=== PATIENT | male | born 1960 | race Caucasian/White ===

== ENCOUNTER 2025-01-28 16:23 | Emergency (ER) | payer MEDICARE, SELFPAY ==
[2025-01-28 16:30] VITALS: BP 141/89; PULSE 61; TEMP 36.8; O2SAT 95; BMI 31.7
--- NOTE | 2025-01-28 16:58 | ED.GENADUL1 ---
HPI HPI - General Adult General Chief complaint: Allergic Reaction Stated complaint: STUNG Time Seen by Provider: 01/28/25 16:28 Source: patient Mode of arrival: walk-in Limitations: no limitations History of Present Illness HPI narrative: Patient is a 64-year-old male with a past medical history of HTN that presents to the emergency department with complaints of bug sting about 45 minutes prior to arrival on his right bicep and right side of his mid back. He states that he was a passenger in a truck where his arm was hanging out the window and he felt it sting his arm and then his back. His son was driving and dropped him off in the ER to be evaluated. He denies any anaphylactic reaction in the past with being stung by bugs or bees. He states about 30 years ago he was stung in the neck and it did swell up but he did not have any anaphylaxis, lip or tongue swelling. He denies any chest pain or shortness of breath. He did not take any medications prior to arrival. Related Data Home Medications ?Medication ?Instructions ?Recorded ?Confirmed amlodipine 10 mg tablet 10 mg PO DAILY 01/28/25 01/28/25 fenofibrate 160 mg tablet 160 mg PO DAILY 01/28/25 01/28/25 glipizide 5 mg tablet 5 mg PO BID 01/28/25 01/28/25 hydrochlorothiazide 25 mg tablet 25 mg PO DAILY 01/28/25 01/28/25 lisinopril 40 mg tablet 40 mg PO DAILY 01/28/25 01/28/25 metoprolol tartrate 100 mg tablet 100 mg PO BID 01/28/25 01/28/25 Allergies Allergy/AdvReac Type Severity Reaction Status Date / Time bee venom protein (honey bee) Allergy Severe Rash Verified 01/28/25 16:29 Opioid HPI Opioid Management Most Recent Opioid Data: Last Pain Scale 4 01/28/25, 16:30 Review of Systems ROS Status of ROS 10 or more systems reviewed and unremarkable except as noted in history and below PFSH PFSH Social History Little interest or pleasure in doing things: not at all Feeling down, depressed, or hopeless: not at all Exam Narrative Exam Narrative: General: No distress, age-appropriate Skin: Warm, dry, no pallor. Small raised lesion with erythema on the medial aspect of the right bicep about 1x 2cm and then on the right side of his back-thoracic region, no induration. Head: Normocephalic, atraumatic. Neck: Supple, non-tender. Eye: Pupils are equal, round and EOMI. No scleral icterus. Ears, Nose, Mouth, and Throat: No nasal mucosal hypertrophy. Oral mucosa is moist, no posterior oropharynx erythema, uvula is mid-line Cardiovascular: Regular Rate and Rhythm without murmur, gallop or rub. Respiratory: No accessory muscle use or respiratory distress. Lungs are clear to auscultation, no wheezing, rales or rhonchi Chest Wall: no tenderness Back: No midline thoracic or lumbar vertebral tenderness. Musculoskeletal: Full ROM of all extremities, no calf or popliteal tenderness GI: Abdomen is soft, non-distended, non tender to palpation. No masses appreciated. No rebound, guarding, or rigidity noted. Neurological: A&O x4. No cranial nerve dysfunction observed. No truncal ataxia. Moves all extremities. Sensation intact. Psychiatric: Cooperative and interactive. Normal mood and affect. Constitutional Vital Signs, click to edit/add: Last Vital Signs Temp 98.3 F 01/28/25 16:30 Pulse 61 01/28/25 16:30 Resp 20 01/28/25 16:30 BP 141/89 01/28/25 16:30 Pulse Ox 95 01/28/25 16:30 O2 Del Method Room Air 01/28/25 16:30 Course Vital Signs Vital signs: Vital Signs Temperature 98.3 F 01/28/25 16:30 Pulse Rate 61 01/28/25 16:30 Respiratory Rate 20 01/28/25 16:30 Blood Pressure 141/89 01/28/25 16:30 Pulse Oximetry 01/28/25 16:30 Oxygen Delivery Method Room Air 01/28/25 16:30 Temperature 98.3 F 01/28/25 16:30 Pulse Rate 61 01/28/25 16:30 Respiratory Rate 20 01/28/25 16:30 Blood Pressure 141/89 01/28/25 16:30 Pulse Oximetry 01/28/25 16:30 Oxygen Delivery Method Room Air 01/28/25 16:30 Medical Decision Making MDM Narrative Medical decision making narrative: 64-year-old male that presented to the emergency department with complaints of bug sting to the right upper arm and right mid thoracic back. No history of anaphylactic reaction to bee/wasp stings. On arrival patient is in no respiratory distress, sitting up comfortably on the ED cart. Vital stable. No lip or tongue swelling. Airway is patent. Patient speaking in full sentences, no tachypnea or dyspnea. Benadryl 25 mg and prednisone 40 mg p.o. ordered. Ice pack for sting sites. On re-evaluation patients erythema and swelling at the 2 sites have almost resolved. His tongue and lips are not swollen, airway is still patent. Vitals stable. This patient presents with symptoms consistent with a bee/wasp sting. Presentation not consistent with acute anaphylaxis (lack of pulmonary, dermatologic, cardiovascular or GI symptoms, lack of hypotension or angioedema. No evidence of airway compromise or shock at this time. Patient improved with H1/H2 blockers, steroids. No need for epinephrine. Plan is for patient to discharge with instructions to return to the ED for evaluation if the following develop: Trouble breathing, swallowing, or speaking. - Swelling of the lips, tongue, or throat. - Widespread hives or rash. - Dizziness, fainting, or chest pain. - Fever, pus, or worsening redness spreading from the sting site. Patient can treat sting areas with: - Cool pack or ice wrapped in a towel for 15 minutes at a time over sting areas if itching, redness, swelling occur. - Acetaminophen or ibuprofen for pain as needed. - OTC antihistamine, (cetirizine, loratidine, or diphenhydramine) as directed. - Apply calamine lotion or 1% hydrocortisone cream if itching is bothersome. He will follow up with his PCP as needed. Differential Diagnosis Differential Diagnosis: Bee Sting, Bug Bite, Allergic reaction Discharge Plan Discharge Chief Complaint: Allergic Reaction Clinical Impression: Bee sting Patient Disposition: Home, Self-Care Time of Disposition Decision: 18:12 Condition: Good Mode of Transportation: Private Vehicle Prescriptions / Home Meds: No Action amlodipine 10 mg tablet 10 mg PO DAILY fenofibrate 160 mg tablet 160 mg PO DAILY glipizide 5 mg tablet 5 mg PO BID hydrochlorothiazide 25 mg tablet 25 mg PO DAILY lisinopril 40 mg tablet 40 mg PO DAILY metoprolol tartrate 100 mg tablet 100 mg PO BID Print Language: [place] Instructions: Insect Bite or Sting (ED) Additional Instructions: Cool pack or ice wrapped in a towel for 15 minutes at a time over sting areas if itching, redness, swelling occur. Take acetaminophen or ibuprofen for pain as needed. For itching you can take an [id number] antihistamine, (cetirizine, loratidine, or diphenhydramine) as directed. Apply calamine lotion or 1% hydrocortisone cream if itching is bothersome. Mild redness, swelling, and tenderness at the sting site can last for 1-3 days. Sometimes welling can increase for up to 24 hours before improving. Return to the ER immediately if you develop: - Trouble breathing, swallowing, or speaking. - Swelling of the lips, tongue, or throat. - Widespread hives or rash. - Dizziness, fainting, or chest pain. - Fever, pus, or worsening redness spreading from the sting site. Referrals: Physician,Non-Staff, MD [Primary Care Provider] - 1 week Discharge Date/Time: 01/28/25 18:23
[2025-01-28] MEDS: DIPHENHYDRAMINE HCL 25 MG CAPSULE PO (17:01)
[2025-01-28] MEDS: PREDNISONE 20 MG TABLET 40 MG PO (17:01)
== END 2025-01-28 18:23 | disposition home or self-care (01) ==
PROVIDERS: Emergency Provider Emergency Medicine
DX: T63.441A Toxic effect of venom of bees, accidental (unintentional), initial encounter (principal)
CPT/HCPCS: 99283; J7512